=== PATIENT | male | born 1955 | race Caucasian/White ===

== ENCOUNTER 2018-06-25 15:11 | Emergency (ER) | payer OTHER, SELFPAY ==
[2018-06-25 15:14] VITALS: BP 148/92; PULSE 60; RESP 14; TEMP 37; O2SAT 98
--- NOTE | 2018-06-25 15:33 | DI.REPORT_ITS ---
SYMPTOM/DIAGNOSIS: FALL, STRUCK ANTERIOR RIGHT INFERIOR CHEST WALL. PA AND LATERAL CHEST, RIGHT RIBS: 06/25 PA and lateral views of the chest and four additional views of the right ribs were obtained. The heart is not enlarged. The lungs are clear. No pleural effusion or pneumothorax identified. No rib fractures seen.
[2018-06-25] MEDS: Acetaminophen 500 MG TAB 1000 MG PO (15:48)
--- NOTE | 2018-06-25 16:04 | ED.GENADUL ---
Disposition Clinical Impression: Chest wall contusion Disposition: HOME Condition: Fair Instructions: Contusion in Adults (ED) Additional Instructions: Encourage hydration. Encourage deep breathing to help prevent pneumonia. Tylenol and/or ibuprofen as needed for discomfort. Please follow-up with primary care in 1 week if pain persists. If you develop shortness of breath, difficulty breathing, increased pain, fever/chills or other new/worsening symptoms please seek care urgently once again. Referrals: Gayle Thurston [Primary Care Provider] - Medical Decision Making - Radiology Data Radiology results: report reviewed, image reviewed X-ray reviewed by radiologist. They advised that the lungs are unremarkable with no consolidation. Pleural space is unremarkable no pneumothorax. Heart is unremarkable no cardiomegaly. Mediastinum is unremarkable, bones are unremarkable. Minimal elevation of the left diaphragm is noted. 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 Diffuse osteopenia. No rib fracture or focal rib lesion seen. - Medical Decision Making Patient presents today with chief complaint of anterior right chest wall pain after falling and striking this area of his chest on a nightstand 2 days ago. Lungs are clear on exam. Patient has chest wall tenderness and localized discoloration where he struck the nightstand. No pain elicited with AP or lateral chest wall compression. No palpable bony defect. Vital signs are within normal limits. Patient is declining any analgesics at this time. Will obtain right-sided rib series. Patient requesting Tylenol and nursing staff. The patient and agree with Tylenol. X-ray reviewed by radiologist. No acute abnormalities noted. I discussed these findings with the patient. Advised chest wall contusion. Encourage deep breathing to help prevent against pneumonia. We discussed new/worsening symptoms when to seek care urgently once again. Advised Tylenol and/or ibuprofen as needed for discomfort. Advise follow-up with primary care in 1 week if symptoms are not improving. All his questions and concerns were addressed and he is in agreement this plan. History of Present Illness - General Chief complaint: Chest/Rib Stated complaint: RT SIDE RIB PAIN Time Seen by Provider: 06/25/18 15:15 Source: patient, family, RN notes reviewed Mode of arrival: ambulatory Limitations: no limitations - History of Present Illness Initial comments: Patient is a 63-year-old male presenting today with chief complaint of anterior right chest wall discomfort. He reports that 2 days ago he tripped in the middle of the night after using the restroom and fell striking his anterior right side of his chest against his nightstand. Reports that since that time he has had progressively increasing discomfort. States that this was particularly exacerbated after gardening yesterday. He denies any shortness of breath but does endorse discomfort with deep inspiration. Patient indicates to an area of ecchymosis as the area of primary discomfort on the anterior right side of his chest wall. Patient reports that approximately 10 years ago he fell from a roof and suffered multiple rib fractures and internal bleeding. He is describing a hemothorax reports that he had to be hospitalized for several days after this incident. Patient takes aspirin daily and is concerned that he may be at high risk for recurrent internal bleeding. Reports that starting yesterday he has had a mild cough. Denies any hemoptysis. - Related Data Aspirin [Aspir-Low] 81 mg PO DAILY 06/20/13 Multivitamin [Animal Chews] 1 each PO DAILY 06/20/13 Cetirizine HCl [Zyrtec] 10 mg PO DAILY 08/26/14 EPINEPHrine [Epipen] 08/26/14 Losartan [Cozaar] 25 mg PO DAILY 08/26/14 Metoprolol [Lopressor] 12.5 mg PO BID 08/26/14 Vardenafil HCl [Levitra] 2.5 mg PO PRN 08/26/14 Allergies Allergy/AdvReac Type Severity Reaction Status Date / Time venom-wasp [Wasp Venom] Allergy Severe Unverified 11/26/17 09:33 apples Allergy Severe Uncoded 11/26/17 09:33 bananas Allergy Severe Uncoded 11/26/17 09:33 coconuts Allergy Severe Uncoded 11/26/17 09:33 grapefruit Allergy Severe Uncoded 11/26/17 09:33 strawberries Allergy Severe Uncoded 11/26/17 09:33 grapes Allergy Intermediate Uncoded 11/26/17 09:33 oranges Allergy Unknown Uncoded 11/26/17 09:33 nuts Allergy Uncoded 11/26/17 09:33 Review of Systems Constitutional: no symptoms reported. denies: chills, fever, malaise Respiratory: no symptoms reported, cough. denies: shortness of breath Cardiovascular: as per HPI Gastrointestinal: denies: abdominal pain, nausea, vomiting, diarrhea Genitourinary: denies: urgency Musculoskeletal: denies: back pain Skin: as per HPI Neurological: denies: headache (Denies striking his head. No LOC) Past Medical History - Past Medical History Medical history: hypertension - Social History Alcohol use: none Drug use: none General Exam - General Limitations: no limitations General appearance: alert, in no apparent distress - Head Head exam: Present: atraumatic - Eye Eye exam: Present: normal apperance - Respiratory Respiratory exam: Present: normal lung sounds bilaterally, chest wall tenderness (Patient is point tender over the anterior inferior right sided chest wall. He does have a 5 cm linear area of discoloration. Minimal soft tissue swelling. No palpable bony deformity. No pain elicited with AP or lateral chest wall pressure applied.). Absent: respiratory distress, stridor, accessory muscle use - Cardiovascular Cardiovascular Exam: Present: regular rate, normal rhythm, normal heart sounds - GI/Abdominal GI/Abdominal exam: Present: soft. Absent: distended, tenderness, guarding - Back Exam Back exam: Present: normal inspection - Neurological Exam Neurological exam: Present: alert, normal gait - Psychiatric Psychiatric exam: Present: normal affect, normal mood - Skin Skin exam: Present: warm, dry. Absent: normal color (As above) Course Vital Signs - 24 hr 06/25/18 15:14 Temperature 37.0 C Pulse 60 Respiratory 14 Rate Blood Pressure 148/92 Pulse Oximetry 98
--- NOTE | 2018-06-25 16:57 | DI.VRAD_ITS ---
EXAM: XR Chest, 2 Views CLINICAL HISTORY: 63 years old, male; Injury or trauma; Fall; Initial encounter; Sprain or strain; Rib area TECHNIQUE: Frontal and lateral views of the chest. COMPARISON: No relevant prior studies available. FINDINGS: Lungs: Unremarkable. No consolidation. Pleural space: Unremarkable. No pneumothorax. Heart: Unremarkable. No cardiomegaly. Mediastinum: Unremarkable. Bones/joints: Unremarkable. Upper abdomen: Minimal elevation of the left diaphragm. IMPRESSION: No acute findings. EXAM: XR Right Ribs, 2 Views CLINICAL HISTORY: 63 years old, male; Injury or trauma; Fall; Initial encounter; Sprain or strain; Rib area TECHNIQUE: Frontal and oblique views of the right ribs. COMPARISON: CR - RIGHT RIBS TO INCLUDE CXR 2016-02-03 08:52 FINDINGS: Lungs: Unremarkable as visualized. No consolidation. Pleural space: Unremarkable. No pneumothorax. 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 Diffuse osteopenia. No rib fracture or focal rib lesion. IMPRESSION: No acute findings. Dictated and Authenticated by: Tanner Altamirano MD. Ordering:JOMAR CAMPBELL MD
[2018-06-25 17:01] VITALS: BP 150/90; PULSE 54; RESP 14; TEMP 37.1; O2SAT 97
[2018-06-25 17:03] VITALS: BP 150/90; PULSE 54; RESP 14; TEMP 37.1; O2SAT 97
== END 2018-06-25 17:10 | disposition home or self-care (01) ==
PROVIDERS: Emergency Provider Emergency Medicine; PCP Nurse Practitioner
DX: S20.211A Contusion of right front wall of thorax, initial encounter (principal); W01.190A Fall on same level from slipping, tripping and stumbling with subsequent striking against furniture, initial encounter; Y92.013 Bedroom of single-family (private) house as the place of occurrence of the external cause; Z79.82 Long term (current) use of aspirin; I10 Essential (primary) hypertension
CPT/HCPCS: 99283; 71046; 71100; 99282

== ENCOUNTER 2018-09-09 08:12 | Outpatient (REF) | payer OTHER, SELFPAY ==
[2018-09-09 13:13] LABS: COMMENT (LAB VIEW ONLY) 127.21 mg/dL; Microalb ug/mg Crea 8.2 ug/mg Cr
[2018-09-09 13:25] LABS: Hemoglobin A1C 7.7 % (4.5-6.2)
[2018-09-09 13:26] LABS: ALT 46 U/L (12-78); AST 23 U/L (15-37); Albumin 3.8 g/dL (3.4-5.0); Alkaline Phosphatase 64 U/L (46-116); Anion Gap 10.3 mmol/L (3-11); BUN 16 mg/dL (7-18); Bilirubin, Total 1.4 mg/dL (0.2-1.0); CO2 27.7 mmol/L (21.0-32.0); CREATININE 0.93 mg/dL (0.70-1.30); Calcium 8.6 mg/dL (8.5-10.1); Chloride 102 mmol/L (98-107); Cholesterol 166 mg/dL (50-200); Glucose 153 mg/dL (70-100); HDL Cholesterol 48 mg/dL (40-60); LDL CHOLESTEROL 108 mg/dL (<100); Potassium 3.8 mmol/L (3.5-5.1); Sodium 140 mmol/L (136-145); Total Protein 6.5 g/dL (6.4-8.2); Triglyceride 74 mg/dL (30-150)
== END 2018-09-09 08:32 ==
LOC: NCHCN 08:12
PROVIDERS: PCP Nurse Practitioner; Visit Provider Nurse Practitioner
DX: R73.9 Hyperglycemia, unspecified (principal); I10 Essential (primary) hypertension; E11.9 Type 2 diabetes mellitus without complications
CPT/HCPCS: 80053; 80061; 83721; 82043; 82570; 83036

== ENCOUNTER 2018-10-21 01:02 | Outpatient (CLI) | payer OTHER, SELFPAY ==
--- NOTE | 2018-10-21 08:00 | DI.US_ITS ---
SYMPTOM/DIAGNOSIS: ABD BLOATING, R14.0, ? CHOLECYSTITIS ABDOMEN ULTRASOUND: The liver shows mildly increased echogenicity consistent with fatty infiltration. There are two small areas of focal fatty sparing near the gallbladder fossa. The gallbladder is unremarkable, without evidence of stones or wall thickening. No biliary dilatation or common duct stone is seen. No ascites. The pancreas and aorta were obscured by bowel gas. Small cysts are noted on both kidneys. Spleen is normal in size. IMPRESSION: Mild fatty infiltration of the liver. No evidence of cholecystitis. No gallstones are seen.
== END 2018-10-21 01:22 ==
PROVIDERS: PCP Nurse Practitioner; Visit Provider Nurse Practitioner
DX: R14.0 Abdominal distension (gaseous) (principal); K76.0 Fatty (change of) liver, not elsewhere classified
CPT/HCPCS: 76700

== ENCOUNTER 2019-03-17 08:34 | Emergency (ER) | payer OTHER, SELFPAY ==
[2019-03-17] VITALS (27 sets, daily range): BP systolic 143–188; BP diastolic 72–89; PULSE 43–58; RESP 12–26; TEMP 36.7–36.9; O2SAT 94–98
--- NOTE | 2019-03-17 08:44 | DI.RAD_ITS ---
SYMPTOM/DIAGNOSIS: CHEST PAIN FRONTAL AND LATERAL CHEST: Comparison is made with 06/25/18. Heart size and pulmonary vasculature are stable and within normal limits. There does appear to be an infiltrate in the left lower lobe posteriorly. This may represent atelectasis or pneumonia. There is obscuration of the posterior costophrenic angle on the left. The right lung is clear. The bones are intact. IMPRESSION: Left basilar atelectasis or pneumonia.
[2019-03-17 08:58] LABS: Abs Immature Grans 0.02 k/cumm (0.0-0.09); Absolute Basophil Count 0.01 k/cumm (0.0-0.2); Absolute Eosinophil Count 0.14 k/cumm (0.0-0.7); Absolute Lymphocyte Count 2.32 k/cumm (1.2-3.4); Absolute Monocyte Count 0.59 k/cumm (0.11-0.7); Absolute Neutrophil Count 6.13 k/cumm (1.2-6.7); Basophils % 0.1; Eosinophils % 1.5; HCT 47.3 % (40.0-50.0); HGB 16.4 g/dL (13.5-17.5); Immature Grans % 0.2; Lymphocytes % 25.2; Mean Corp. HGB Concentration 34.7 g/dL (32.0-36.0); Mean Corpuscular Hemoglobin 31.4 pg (27.0-33.0); Mean Corpuscular Volume 90.6 fL (80-95); Mean Platelet Volume 9.8 fL (8.0-11.0); Monocytes % 6.4; Neutrophils % 66.6; Platelet Count 199 x1000/uL (130-400); RBC 5.22 m/cumm (4.50-6.00); RBC Distribution Width 13.1 % (11.8-14.1); White Blood Cell Count 9.21 k/cumm (4.4-10.8)
--- NOTE | 2019-03-17 09:03 | DI.CT_ITS ---
SYMPTOM/DIAGNOSIS: DIZZINESS NONCONTRAST HEAD CT: There are no priors for comparison. The ventricles and sulci are consistent with the patient's age. No evidence of an acute infarct, hemorrhage, acute midline shift or mass effect is identified. The ventricles are intact. The basilar cisterns are patent. There is opacification of the left maxillary sinus with thickening of the duque of the sinus suggesting chronic sinus disease. There is mucosal thickening in several of the left ethmoid air cells and the left sphenoid sinus. The mastoid air cells are well pneumatized. The calvarium is intact. IMPRESSION: 1. No acute intracranial process. 2. Findings of chronic maxillary sinusitis. The findings were discussed with the ER on the date of the examination.
--- NOTE | 2019-03-17 09:05 | ED.GENADUL_ITS ---
Discharge Plan Disposition Patient Disposition: HOME Condition: Improving Discharge Details Chief Complaint: GenMedical Clinical Impression: Chest pain, atypical Primary Care Provider: Gayle Thurston ED Provider: Eric White Home Meds and New Rx's Prescriptions: Continued pediatric multivitamin [ANIMAL CHEWS] 1 EACH tablet,chewable 1 ea PO DAILY RF: 0 aspirin [Aspir-Low] 81 MG tablet,delayed release (DR/EC) 81 mg PO DAILY RF: 0 metoprolol tartrate 25 MG tablet 25 mg PO BID RF: 0 cetirizine [Zyrtec] 10 MG tablet 10 mg PO DAILY RF: 0 epinephrine 0.3 MG/SYR auto-injector RF: 0 chlorthalidone 25 mg Tablet 12.5 mg PO DAILY RF: 0 losartan 25 mg Tablet 25 mg PO HS RF: 0 losartan 50 mg Tablet 50 mg PO DAILY RF: 0 vardenafil [Levitra] 20 mg Tablet 20 mg PO DAILY PRNRF: 0 Discharge Instructions Instructions: Chest Pain (ED) Additional Instructions: Return immediately to the emergency department if you have any new or worsening symptoms, return of pain or discomfort, or worsening dizziness. Given your low heart rate and your medications you are on you should follow-up with your primary care provider in the next week for reassessment. Referrals: Gayle Thurston [Primary Care Provider] - 1 week (For reassessment) Discharge Data Discharge Date/Time-TO BE ENTERED AT DEPARTURE: 03/17/19 13:09 Medical Decision Making Patient presenting the emergency department for chief complaint of chest pressure and some dizziness that started between 3 and 7 AM. He does state bilateral tingling hands. Patient does state he was not sleeping well due to significant amount of stress and work conflict that is been going on recently. The symptoms did not subside so he decided to come to the emergency department. Patient states continued chest pressure and tingling hands with intermittent subjective dizziness. Physical exam is unremarkable without any specific findings, normal cardiac exam, normal neurological exam. Plan to check labs, EKG, and head CT/chest x-ray. EKG reviewed with Sari Gomez and shows sinus bradycardia, rate of 57, no STEMI, otherwise nondiagnostic. Chest x-ray shows no acute findings. Head CT shows sinusitis otherwise no acute findings. Patient does state that he has seasonal allergies and has been suffering with these. Review of labs show negative initial troponin, unremarkable CBC, mildly low potassium but otherwise nondiagnostic CMP. Patient reassessed and states improvement of symptoms. Given patient stating dizziness and chest pressure did discuss d-dimer and second troponin which patient was agreeable to stay. Pending remaining results did discuss with patient symptoms further and he does state that they have had to change his metoprolol dose previously due to some dizziness which occurs in the morning. Patient also does describe significant amount of stress so there may be an anxiety component to patient's complaint. D-dimer was not elevated outside of limits and negative second troponin. Given this I feel the patient is able to safely be discharged to follow-up with his primary care provider for further testing as needed. I do think that there is a possible component of recent stressors that is causing patient symptoms. Return precautions were discussed. After discussion of diagnosis and plan of care patient has no further needs, questions, or concerns and states clear under standing to return to the emergency department for any worsening symptoms. HPI General Mode of arrival: ambulatory . Date/Time Provider Initiated Documentation: 03/17/19 08:40 . Limitations to Documentation: no limitations . Information obtained by: patient, family and RN notes reviewed . History of Present Illness 64 year old M presents to the emergency department with the chief complaint of chest pain dizzness, described as mild, with intensity rated at 4. Quality is described as other (pressure), and is localized to the head and chest. Patient started experiencing this hour(s) (5) and it has been constant. No relieving factors improve symptom(s), Other factors that worsen symptoms (work stress) . Patient did receive the following treatments prior to arrival, none Related Data Home Medications Medication Instructions Recorded Confirmed aspirin [Aspir-Low] 81 mg PO DAILY 06/20/13 03/17/19 pediatric multivitamin [ANIMAL 1 ea PO DAILY 06/20/13 03/17/19 CHEWS] cetirizine [Zyrtec] 10 mg PO DAILY 08/26/14 03/17/19 epinephrine 08/26/14 09/17/14 metoprolol tartrate 25 mg PO BID 08/26/14 03/17/19 chlorthalidone 12.5 mg PO DAILY 03/17/19 03/17/19 losartan 25 mg PO HS 03/17/19 03/17/19 losartan 50 mg PO DAILY 03/17/19 03/17/19 vardenafil [Levitra] 20 mg PO DAILY PRN 03/17/19 03/17/19 Allergies Allergy/AdvReac Type Severity Reaction Status Date / Time venom-wasp [Wasp Venom] Allergy Severe Unverified 03/17/19 08:54 apples Allergy Severe Uncoded 03/17/19 08:54 bananas Allergy Severe Uncoded 03/17/19 08:54 coconuts Allergy Severe Uncoded 03/17/19 08:54 grapefruit Allergy Severe Uncoded 03/17/19 08:54 strawberries Allergy Severe Uncoded 03/17/19 08:54 grapes Allergy Intermediate Uncoded 03/17/19 08:54 oranges Allergy Unknown Uncoded 03/17/19 08:54 nuts Allergy Uncoded 03/17/19 08:54 General Stated Complaint: GenMedical YANY: 2 Review of Systems Constitutional Denies chills, Denies fever(s) and Denies malaise Cardiovascular Reports as per HPI, Reports chest pain, Denies chest pain with activity, Denies syncope, Denies irregular heart rhythm, Denies palpitations and Denies dyspnea Respiratory Denies cough, Denies hemoptysis and Denies dyspnea Gastrointestinal Denies abdominal pain, Denies nausea and Denies vomiting Neurologic Denies syncope Psychiatric Denies anxiety Endocrine Denies cold intolerance, Denies heat intolerance and Denies palpitations [facility] Social History Smoking/Tobacco Use Status: Never Drug use: Never Do you feel safe at home: Yes Do you feel safe in your relationship?: Yes Exam Const General: cooperative, healthy appearing, comfortable, no acute distress, not diaphoretic and not ill appearing Nutritional Appearance: average body habitus Orientation: alert, awake and oriented x3 Limitations: mental status not altered Neck Neck: normal visual inspection, full ROM, trachea midline, supple and no anterior neck swelling Thyroid: thyroid normal Carotids: normal carotid upstroke and no bruits Chest Chest: normal inspection of the chest Resp Effort & Inspection: normal respiratory effort and able to speak in complete sentences Auscultation: clear to auscultation bilaterally Cardio Jugular venous pressure: no JVD Palpation: normal PMI Rate: regular rate Rhythm: regular rhythm Heart Sounds: S1 normal, S2 normal, no click, no gallops, no murmurs and no rubs Bruits: no abdominal aortic bruits and no carotid bruits Pulses: radial pulses present bilaterally 2+ GI Inspection: normal to inspection Palpation: soft, no aortic enlargement, no pulsatile masses and nontender Auscultation: normal bowel sounds Skin General skin exam: no rashes or lesions noted Neuro General: alert, awake, oriented x3, tone normal and moves all extremities Course Vital Signs Temperature 36.9 C 03/17/19 08:42 Pulse 58 L 03/17/19 08:42 Respiratory Rate 16 03/17/19 08:42 Blood Pressure 188/89 H 03/17/19 08:42 Pulse Oximetry 98 03/17/19 08:42 Temperature 36.9 C 03/17/19 08:42 Temperature Source Skin 03/17/19 08:42 Pulse 58 L 03/17/19 08:42 Respiratory Rate 16 03/17/19 08:42 Respiratory Effort Non-Labored 03/17/19 08:47 Blood Pressure 188/89 H 03/17/19 08:42 Blood Pressure Position Sitting 03/17/19 08:42 Pulse Oximetry 98 03/17/19 08:42 Oxygen Delivery Method Room Air 03/17/19 08:42 Oxygen Flow Rate 0 03/17/19 08:42 Pain Level 2 03/17/19 08:42 Lab/Test Results Lab/Test Results: Laboratory Tests Range/Units 03/17/19 08:45 WBC (4.4-10.8) k/cumm 9.21 RBC (4.50-6.00) m/cumm 5.22 Hgb (13.5-17.5) g/dL 16.4 Hct (40.0-50.0) % 47.3 MCV (80-95) fL 90.6 MCH (27.0-33.0) pg 31.4 MCHC (32.0-36.0) g/dL 34.7 RDW (11.8-14.1) % 13.1 Plt Count (130-400) x1000/uL 199 MPV (8.0-11.0) fL 9.8 Immature Gran % 0.2 Neutrophils % 66.6 Lymphocytes % 25.2 Monocytes % 6.4 Eosinophils % 1.5 Basophils % 0.1 Absolute Neutrophils (1.2-6.7) k/cumm 6.13 Absolute Lymphocytes (1.2-3.4) k/cumm 2.32 Absolute Monocytes (0.11-0.7) k/cumm 0.59 Absolute Eosinophils (0.0-0.7) k/cumm 0.14 Absolute Basophils (0.0-0.2) k/cumm 0.01
[2019-03-17 09:13] LABS: PTT Activated 23.6 sec (21.0-31.4)
[2019-03-17 09:22] LABS: ALT 40 U/L (12-78); AST 18 U/L (15-37); Albumin 3.9 g/dL (3.4-5.0); Alkaline Phosphatase 63 U/L (46-116); Anion Gap 10.5 mmol/L (3-11); BUN 16 mg/dL (7-18); Bilirubin, Total 1.8 mg/dL (0.2-1.0); CO2 28.5 mmol/L (21.0-32.0); CREATININE 0.95 mg/dL (0.70-1.30); Calcium 8.8 mg/dL (8.5-10.1); Chloride 102 mmol/L (98-107); Glucose 199 mg/dL (70-100); Magnesium 1.8 mg/dL (1.8-2.4); Potassium 3.4 mmol/L (3.5-5.1); Sodium 141 mmol/L (136-145); Total Protein 7.2 g/dL (6.4-8.2); Troponin I 0.02 ng/mL (0.00-0.06)
[2019-03-17 10:28] LABS: Bilirubin Negative (Negative); Blood Trace-intact (Negative); Clarity Clear; Glucose 100 mg/dL (Negative); Ketones Negative (Negative); Leukocyte Esterase Negative (Negative); Nitrite Negative (Negative); Urobilinogen 0.2 EU/dL (Up TO 0.2)
[2019-03-17 10:43] LABS: Bacteria Negative HPF (Negative); C & S Indicated? No; Casts Negative LPF (Negative); Crystals Negative HPF (Negative); Epithelial Cells Negative HPF (Negative); Mucus Negative (Negative); RBC 0-2 (0-2); WBC Negative HPF (0-5)
[2019-03-17 12:40] LABS: D-Dimer 323 ng/mlFEU (<500)
[2019-03-17 12:45] LABS: Troponin I < 0.02 ng/mL (0.00-0.06)
--- NOTE | 2019-03-18 09:10 | PDOC.ERCMPRO ---
Care Management Progress Note 03/18-Randal XAVIER requested assistance with a PCP (Bertrand) f/u in two weeks for Atypical chest pain and bradycardia. Referral faxed to [facility].
== END 2019-03-17 13:09 | disposition home or self-care (01) ==
PROVIDERS: Emergency Provider Nurse Practitioner Family; PCP Nurse Practitioner
DX: R07.89 Other chest pain (principal); R42 Dizziness and giddiness; R20.2 Paresthesia of skin; R00.1 Bradycardia, unspecified
CPT/HCPCS: 36415; 80053; 93005; 99285; 70450; 71046; 81003; 81015; 83735; 84484; 85025; 85379; 85610; 85730; 93010

== ENCOUNTER 2020-09-01 13:02 | Outpatient (REF) | payer OTHER, SELFPAY ==
[2020-09-01 18:24] LABS: Hemoglobin A1C 7.2 % (<5.7)
[2020-09-01 18:27] LABS: ALT 34 U/L (16-63); AST 14 U/L (15-37); Alkaline Phosphatase 81 U/L (46-116); Anion Gap 9.9 mmol/L (3-11); BUN 14 mg/dL (7-18); Bilirubin, Total 0.9 mg/dL (0.2-1.0); CO2 26.1 mmol/L (21.0-32.0); CREATININE 1.06 mg/dL (0.70-1.30); Calcium 8.8 mg/dL (8.5-10.1); Chloride 102 mmol/L (98-107); Cholesterol 203 mg/dL (<200); Glucose 265 mg/dL (74-106); HDL Cholesterol 39 mg/dL (40-60); Potassium 3.8 mmol/L (3.5-5.1); Sodium 138 mmol/L (136-145); Total Protein 6.9 g/dL (6.4-8.2); Triglyceride 401 mg/dL (<150)
[2020-09-01 18:39] LABS: LDL CHOLESTEROL 128 mg/dL (<100)
[2020-09-02 21:49] LABS: PSA, Screening 1.8 ng/mL (0.0-4.5)
== END 2020-09-01 13:22 ==
LOC: NCHCN 13:02
PROVIDERS: PCP Nurse Practitioner; Visit Provider Nurse Practitioner
DX: Z00.00 Encounter for general adult medical examination without abnormal findings (principal); E11.9 Type 2 diabetes mellitus without complications; I10 Essential (primary) hypertension; Z12.5 Encounter for screening for malignant neoplasm of prostate; Z13.89 Encounter for screening for other disorder
CPT/HCPCS: 80053; 80061; 83721; 84153; 83036

== ENCOUNTER 2021-10-30 18:43 | Outpatient (REF) | payer OTHER, SELFPAY ==
[2021-10-30 20:27] LABS: Hemoglobin A1C 6.8 % (<5.7)
[2021-10-30 20:33] LABS: ALT 39 U/L (16-63); AST 17 U/L (15-37); Alkaline Phosphatase 77 U/L (46-116); Anion Gap 9.1 mmol/L (3-11); BUN 17 mg/dL (7-18); Bilirubin, Total 0.7 mg/dL (0.2-1.0); CO2 28.9 mmol/L (21.0-32.0); CREATININE 0.9 mg/dL (0.70-1.30); Calculated LDL 47 mg/dL (<100); Chloride 104 mmol/L (98-107); Cholesterol 110 mg/dL (<200); Glucose 167 mg/dL (74-106); HDL Cholesterol 40 mg/dL (40-60); Potassium 3.8 mmol/L (3.5-5.1); Sodium 142 mmol/L (136-145); Total Protein 6.2 g/dL (6.4-8.2); Triglyceride 118 mg/dL (<150)
== END 2021-10-30 18:44 | disposition home or self-care (01) ==
LOC: NCHCN 18:43
PROVIDERS: PCP Nurse Practitioner; Visit Provider Nurse Practitioner
DX: E11.9 Type 2 diabetes mellitus without complications (principal); I10 Essential (primary) hypertension
CPT/HCPCS: 80053; 80061; 83036

== ENCOUNTER 2022-03-19 13:37 | Emergency (ER) | payer OTHER, SELFPAY ==
[2022-03-19 14:12] VITALS: BP 156/79; PULSE 45; RESP 16; TEMP 36.6; O2SAT 96
--- NOTE | 2022-03-19 15:04 | W.ED.GENAD ---
Discharge Plan Disposition Patient Disposition: HOME Condition: Stable Discharge Details Clinical Impression: Puncture wound of finger of right hand Primary Care Provider: Gayle Thurston ED Provider: Steve Hutchinson Home Meds and New Rx's Prescriptions: Continued pediatric multivitamin [ANIMAL CHEWS] 1 EACH tablet,chewable 1 ea PO DAILY aspirin [Aspir-Low] 81 MG tablet,delayed release (DR/EC) 81 mg PO DAILY metoprolol tartrate 25 MG tablet 25 mg PO BID cetirizine [Zyrtec] 10 MG tablet 10 mg PO DAILY epinephrine 0.3 MG/SYR auto-injector chlorthalidone 25 mg Tablet 12.5 mg PO DAILY losartan 25 mg Tablet 25 mg PO HS losartan 50 mg Tablet 50 mg PO DAILY vardenafil [Levitra] 20 mg Tablet 20 mg PO DAILY PRN Discharge Instructions Instructions: Puncture Wound (ED) Additional Instructions: Keflex as directed. Change antibiotic dressing daily. rest/elevate,warm compresses or soaks every 2 hours for 20 minutes. Wear splint as needed, advance activity as tolerated. Watch for new/worsening symptoms and return to the ER for any concerns. I would like you contact the Orthopaedic office tomorrow to discuss your ER visit and need for outpatient evaluation Referrals: Swapnil Myers MD [ [facility] STAFF PHYSICIAN] - Discharge Data Discharge Date/Time-TO BE ENTERED AT DEPARTURE: 03/19/22 17:44 Medical Decision Making <WOODROW Smith - Last Filed: 03/19/22 21:04> 67-year-old gentleman, [id number], tetanus status looked up and he is up-to-date, updated in 2019, presents for a puncture injury to his right middle finger. Prior to arrival he had a mechanical slip and fall, nail went through the flexor aspect of his distal right middle finger and exited through the extensor aspect. Reports mild discomfort, stiffness but neuro, attending, vascular intact. 5 of 5 strength. No obvious foreign body or bleeding. The wound was thoroughly soaked in Betadine and sterile water then irrigated. X-ray read by radiology as unremarkable third digit, old fourth finger injury. Clinically patient has no injury to the fourth digit. The wound was appropriately cleaned and dressed with antibiotic dressing. Splint applied. Orthopedic referral provided. Standard discharge and return precautions were provided. Patient understands, is agreeable to this plan, and has no additional questions or concerns upon discharge. This documentation was generated using [employer] system, please disregard any oddities of phrase or misspellings. Medical Records Medical records reviewed: Yes I reviewed the patient's medical records. Imaging Data Radiologic Study: Attestation: I personally reviewed and interpreted this imaging study as follows: Imaging: X-Ray Radiologist's impression: Exam(s) XR HAND RT COMPLETE EXAM: XR HAND RT COMPLETE CLINICAL HISTORY: nail throught r middle finger, near DIP. TECHNIQUE: 2D digital imaging was performed. Three views. COMPARISON: No exams were available for comparison FINDINGS: BONES: No acute fracture is present. There is deformity of the tuft of the 4th finger consistent with old injury. No bony destructive lesion is seen. JOINTS: No dislocation present. Mild degenerative changes of the inter phalangeal joints. SOFT TISSUE: Normal. No foreign body. IMPRESSION: No abnormality of the middle finger. Deformity of the tuft of the ring finger, presumably old. <WOODROW Gonzalez - Last Filed: 03/30/22 11:05> 67-year-old gentleman, [id number], tetanus status looked up and he is up-to-date, updated in 2020, presents for a puncture injury to his right middle finger. Prior to arrival he had a mechanical slip and fall, nail went through the flexor aspect of his distal right middle finger and exited through the extensor aspect. Reports mild discomfort, stiffness but neuro, attending, vascular intact. 5 of 5 strength. No obvious foreign body or bleeding. The wound was thoroughly soaked in Betadine and sterile water then irrigated. X-ray read by radiology as unremarkable third digit, old fourth finger injury. Clinically patient has no injury to the fourth digit. The wound was appropriately cleaned and dressed with antibiotic dressing. Splint applied. Orthopedic referral provided. Standard discharge and return precautions were provided. Patient understands, is agreeable to this plan, and has no additional questions or concerns upon discharge. This documentation was generated using [employer] system, please disregard any oddities of phrase or misspellings. Mason I did not see this patient or participate in his care, my name was entered in error. HPI <WOODROW Smith - Last Filed: 03/19/22 21:04> General Mode of arrival: ambulatory. Date/Time Provider Initiated Documentation: 03/19/22 14:16. Limitations to Documentation: no limitations. Information obtained by: patient and family. History of Present Illness 67 year old M presents to the emergency department with the chief complaint of R middle finger injury, described as moderate, with intensity rated at 5. Quality is described as aching, and is localized to the right and upper extremity. Patient reports no radiation. Patient started experiencing this hour(s) (3) and it has been constant. No relieving factors improve symptom(s), Movement worsens symptoms . Patient notes no other symptoms.. Patient did receive the following treatments prior to arrival, none Related Data Home Medications Medication Instructions Recorded Confirmed aspirin 81 mg tablet,delayed 81 mg PO DAILY 06/20/13 03/17/19 release (Aspir-Low) pediatric multivitamin (ANIMAL 1 ea PO DAILY 06/20/13 03/17/19 CHEWS tablet) cetirizine 10 mg tablet (Zyrtec) 10 mg PO DAILY 08/26/14 03/17/19 epinephrine 0.3 mg/0.3 mL 08/26/14 09/17/14 injection, auto-injector metoprolol tartrate 25 mg tablet 25 mg PO BID 08/26/14 03/17/19 chlorthalidone 25 mg tablet 12.5 mg PO DAILY 03/17/19 03/17/19 losartan 25 mg tablet 25 mg PO HS 03/17/19 03/17/19 losartan 50 mg tablet 50 mg PO DAILY 03/17/19 03/17/19 vardenafil 20 mg tablet (Levitra) 20 mg PO DAILY PRN 03/17/19 03/17/19 Allergies Allergy/AdvReac Type Severity Reaction Status Date / Time venom-wasp [Wasp Venom] Allergy Severe Unverified 03/19/22 14:14 apples Allergy Severe Uncoded 03/19/22 14:14 bananas Allergy Severe Uncoded 03/19/22 14:14 coconuts Allergy Severe Uncoded 03/19/22 14:14 grapefruit Allergy Severe Uncoded 03/19/22 14:14 strawberries Allergy Severe Uncoded 03/19/22 14:14 grapes Allergy Intermediate Uncoded 03/19/22 14:14 oranges Allergy Unknown Uncoded 03/19/22 14:14 nuts Allergy Uncoded 03/19/22 14:14 <Chikis Piburn, PA - Last Filed: 03/30/22 11:05> General Stated Complaint: Laceration YANY: 4 Review of Systems <WOODROW Smith - Last Filed: 03/19/22 21:04> Constitutional Constitutional: Denies fever(s) and Denies weakness Musculoskeletal Musculoskeletal: Denies deformity, Reports arthralgias, Denies numbness, Reports stiffness and Denies tingling Integumentary/Breasts Skin/Breast: Denies rash Neurologic Neurologic: Denies numbness, Denies tingling and Denies weakness PFSH <WOODROW Smith - Last Filed: 03/19/22 21:04> All Active Problems (Updated 03/19/22 @ 17:28 by WOODROW Smith) Puncture wound of finger of right hand (Acute) Social History Smoking/Tobacco Use Status: Never Smoking risk assessment performed?: Yes Alcohol Intake: current Alcohol Intake frequency: a few times a month Alcohol type: beer Drug use: Never Do you feel safe at home: Yes Do you feel safe in your relationship?: Yes Exam <WOODROW Smith - Last Filed: 03/19/22 21:04> Const General: cooperative, healthy appearing, comfortable and no acute distress Orientation: alert and awake [facility] Head: normal to inspection, normocephalic and atraumatic Eyes Conjunctivae: conjunctivae normal Neck Neck: normal visual inspection, trachea midline and supple Resp Effort & Inspection: normal respiratory effort and able to speak in complete sentences Skin General skin exam: no rashes or lesions noted Neuro General: patient alert, patient awake, moves all extremities and no focal motor deficits Cognition: normal cognition Speech: speech normal Gait: normal gait Motor: muscle tone normal throughout Sensory Exam: no sensory deficits noted Extrem General: full ROM and capillary refill normal Hand/finger images: 1. Puncture wound. No active bleeding. No obvious foreign body. Neuro, vascular, tendon intact. Normal capillary refill and radial pulse. 5 of 5 strength. 2. Puncture wound. No active bleeding. No obvious foreign body. Neuro, vascular, tendon intact. Normal capillary refill and radial pulse. 5 of 5 strength. Psych Appearance: grossly normal Mental Status: mental status grossly normal <WOODROW Gonzalez - Last Filed: 03/30/22 11:05> Vital Signs Vital signs: Vital Signs Temperature 36.6 C 03/19/22 14:12 Pulse 45 L 03/19/22 14:12 Respiratory Rate 16 03/19/22 14:12 Blood Pressure 156/79 H 03/19/22 14:12 Pulse Oximetry 96 03/19/22 14:12 Temperature 36.6 C 03/19/22 14:12 Temperature Source Oral 03/19/22 14:12 Pulse 45 L 03/19/22 14:12 Respiratory Rate 16 03/19/22 14:12 Blood Pressure 156/79 H 03/19/22 14:12 Blood Pressure Position Sitting 03/19/22 14:12 Pulse Oximetry 96 03/19/22 14:12 Oxygen Delivery Method Room Air 03/19/22 14:12 Oxygen Flow Rate 0 03/19/22 14:12 Pain Level 4 03/19/22 14:12
[2022-03-19 15:37] VITALS: BP 174/96; PULSE 47; RESP 16; TEMP 36.3; O2SAT 96
--- NOTE | 2022-03-19 16:14 | NUR.NOTE ---
Nursing Note: Pt seen by provider, finger cleansed & soaking in saline/betadine, xray ordered, no new complaints.
--- NOTE | 2022-03-19 16:40 | DI.RAD_ITS ---
Exam(s) XR HAND RT COMPLETE EXAM: XR HAND RT COMPLETE CLINICAL HISTORY: nail throught r middle finger, near DIP. TECHNIQUE: 2D digital imaging was performed. Three views. COMPARISON: No exams were available for comparison FINDINGS: BONES: No acute fracture is present. There is deformity of the tuft of the 4th finger consistent wit h old injury. No bony destructive lesion is seen. JOINTS: No dislocation present. Mild degenerative changes of the inter phalangeal joints. SOFT TISSUE: Normal. No foreign body. IMPRESSION: No abnormality of the middle finger. Deformity of the tuft of the ring finger, presumably old. DATA REPOSITORY: RADIATION DOSE DELIVERED:
--- NOTE | 2022-03-19 17:45 | NUR.NOTE ---
Nursing Note:PT RIGHT MIDDLE FINGER DRESSED W/ANTIBIOTIC OINTMENT, TELFA, COBAN & SPLINT. PT TOLERATED W/O PROBLEMS.
== END 2022-03-19 17:44 | disposition home or self-care (01) ==
PROVIDERS: Emergency Provider Physician Assistant; PCP Nurse Practitioner
DX: S61.233A Puncture wound without foreign body of left middle finger without damage to nail, initial encounter (principal); W45.0XXA Nail entering through skin, initial encounter
CPT/HCPCS: 29130; 99283; 73130

== ENCOUNTER 2022-05-18 11:40 | Emergency (ER) | payer OTHER, SELFPAY ==
[2022-05-18 11:45] VITALS: BP 152/78; PULSE 55; RESP 18; TEMP 36.2; O2SAT 98
--- NOTE | 2022-05-18 12:45 | DI.US_ITS ---
Exam(s) US LOWER EXTREMITY VENOUS LT EXAM: US LOWER EXTREMITY VENOUS LT CLINICAL HISTORY: pain/swelling, recent trip to [place]. TECHNIQUE: Lower extremity venous ultrasound performed using grayscale, color-flow, and spectral Do ppler analysis. COMPARISON: No exams were available for comparison FINDINGS: The common femoral, femoral and popliteal veins demonstrate normal compressibility, augmentation, and color Doppler. The posterior tibial veins are patent. No saphenous vein thrombosis or other superfi cial venous thrombosis is seen. A Flowers's cyst is noted measuring 5 cm in length. IMPRESSION: Flowers's cyst. No evidence of DVT. DATA REPOSITORY:
--- NOTE | 2022-05-18 12:48 | ED.GENADUL_ITS ---
Discharge Plan Disposition Patient Disposition: HOME Condition: Stable Discharge Details Clinical Impression: Left hamstring muscle strain, Flowers's cyst of knee Primary Care Provider: Gayle Thurston ED Provider: Steve Hutchinson Home Meds and New Rx's Prescriptions: Continued ANIMAL CHEWS 1 EACH tablet,chewable 1 ea PO DAILY aspirin [Aspir-Low] 81 MG tablet,delayed release (DR/EC) 81 mg PO DAILY metoprolol tartrate 25 MG tablet 25 mg PO BID cetirizine [Zyrtec] 10 MG tablet 10 mg PO DAILY epinephrine 0.3 MG/SYR auto-injector PRN chlorthalidone 25 mg Tablet 12.5 mg PO DAILY losartan 25 mg Tablet 25 mg PO HS losartan 50 mg Tablet 50 mg PO DAILY vardenafil [Levitra] 20 mg Tablet 20 mg PO DAILY PRN Discharge Instructions Instructions: Hamstring Injury (ED), Flowers Cyst (ED) Additional Instructions: Ultrasound reveals no DVT. Incidentally there is a Flowers's cyst. He likely partially tore your hamstring. [id number] Tylenol as directed. Cool and/or warm compresses every 2 hours for 20 minutes. Gentle stretching as tolerated. Please watch for new or worsening symptoms and return to the ER for any concerns. Otherwise I recommend following up with your primary care next week for reevaluation. Discharge Data Discharge Date/Time-TO BE ENTERED AT DEPARTURE: 05/18/22 15:40 Medical Decision Making 67-year-old gentleman, presents for left leg bruising, concern for DVT. He states that he was traveling from [place] at the end of last month, running in an airport when he felt an injury to his left leg. He began to heal but he felt as though he once again injured it a few days ago and now is noticing bruising. He states that his father had a DVT and he is presenting to be sure this is not a DVT. Clinically it appears as though he likely has a soft tissue injury. No obvious complete rupture. Neuro, vascular, tendon intact. Given his recent travel to [place], concern for DVT, plan is to obtain ultrasound of the left leg. Ultrasound reveals no DVT, there is a Flowers's cyst. This discussed ultrasound with patient and family. Standard discharge and return precautions were provided. Patient understands, is agreeable to this plan, and has no additional questions or concerns upon discharge. This documentation was generated using [employer] system, please disregard any oddities of phrase or misspellings. Medical Records Medical records reviewed: Yes I reviewed the patient's medical records. Imaging Data Radiologic Study: Attestation: I personally reviewed and interpreted this imaging study as follows: Imaging: Ultrasound Radiologist's impression: Exam(s) US LOWER EXTREMITY VENOUS LT EXAM:? US LOWER EXTREMITY VENOUS LT CLINICAL HISTORY: ? pain/swelling, recent trip to [place].? TECHNIQUE: ? Lower extremity venous ultrasound performed using grayscale, color- flow, and spectral Doppler analysis. COMPARISON:? No exams were available for comparison FINDINGS: The common femoral, femoral and popliteal veins demonstrate normal compressibility, augmentation, and color Doppler. The posterior tibial veins are patent.? No saphenous vein thrombosis or other superficial venous thrombosis is seen.? A Flowers's cyst is noted measuring 5 cm in length. IMPRESSION: Flowers's cyst.? No evidence of DVT.? HPI General Mode of arrival: ambulatory . Date/Time Provider Initiated Documentation: 05/18/22 11:50 . Limitations to Documentation: no limitations . Information obtained by: patient and family . History of Present Illness 67 year old M presents to the emergency department with the chief complaint of L leg pain, described as mild, with intensity rated at 3. Quality is described as aching, and is localized to the left and lower extremity. Patient reports no radiation. Patient started experiencing this day(s) (10) and it has been other (worsening). No relieving factors improve symptom(s), Movement worsens symptoms . Patient notes denies chest pain and shortness of breath. Patient did receive the following treatments prior to arrival, none Related Data Home Medications Medication Instructions Recorded Confirmed aspirin 81 mg tablet,delayed 81 mg PO DAILY 06/20/13 05/18/22 release (Aspir-Low) pediatric multivitamin (ANIMAL 1 ea PO DAILY 06/20/13 05/18/22 CHEWS tablet) cetirizine 10 mg tablet (Zyrtec) 10 mg PO DAILY 08/26/14 05/18/22 epinephrine 0.3 mg/0.3 mL PRN 08/26/14 09/17/14 injection, auto-injector metoprolol tartrate 25 mg tablet 25 mg PO BID 08/26/14 05/18/22 chlorthalidone 25 mg tablet 12.5 mg PO DAILY 03/17/19 05/18/22 losartan 25 mg tablet 25 mg PO HS 03/17/19 05/18/22 losartan 50 mg tablet 50 mg PO DAILY 03/17/19 05/18/22 vardenafil 20 mg tablet (Levitra) 20 mg PO DAILY PRN 03/17/19 05/18/22 Allergies Allergy/AdvReac Type Severity Reaction Status Date / Time venom-wasp [Wasp Venom] Allergy Severe Unverified 03/19/22 14:14 apples Allergy Severe Uncoded 03/19/22 14:14 bananas Allergy Severe Uncoded 03/19/22 14:14 coconuts Allergy Severe Uncoded 03/19/22 14:14 grapefruit Allergy Severe Uncoded 03/19/22 14:14 strawberries Allergy Severe Uncoded 03/19/22 14:14 grapes Allergy Intermediate Uncoded 03/19/22 14:14 oranges Allergy Unknown Uncoded 03/19/22 14:14 nuts Allergy Uncoded 03/19/22 14:14 General Stated Complaint: Orthopedic YANY: 4 Review of Systems Constitutional Constitutional: Denies fever(s) and Denies weakness Cardiovascular Cardiovascular: Denies chest pain and Denies dyspnea Respiratory Respiratory: Denies dyspnea Musculoskeletal Musculoskeletal: Denies deformity, Denies arthralgias, Denies numbness, Reports stiffness and Denies tingling Integumentary/Breasts Skin/Breast: Denies rash Neurologic Neurologic: Denies numbness, Denies tingling and Denies weakness Hematologic/Lymphatic Hematologic/Lymphatic: Denies easy bleeding and Denies easy bruising PFSH All Active Problems Left hamstring muscle strain (Acute) Flowers's cyst of knee (Acute) Social History Smoking/Tobacco Use Status: Never Smoking risk assessment performed?: Yes Alcohol Intake: current Alcohol Intake frequency: a few times a month Alcohol type: beer Drug use: Never Do you feel safe at home: Yes Do you feel safe in your relationship?: Yes Exam Const General: cooperative, healthy appearing, comfortable and no acute distress Orientation: alert and awake H[facility] Head: normal to inspection, normocephalic and atraumatic Face and sinus: normal facial exam Mouth: moist mucous membranes Eyes General: appearance normal, both eyes and all related structures Conjunctivae: conjunctivae normal Neck Neck: normal visual inspection, trachea midline and supple Resp Effort & Inspection: normal respiratory effort and able to speak in complete sentences Auscultation: clear to auscultation bilaterally Cardio Rate: regular rate Rhythm: regular rhythm Back/Spine/Pelvis Back: No back tenderness Skin General skin exam: no rashes or lesions noted Neuro General: patient alert, patient awake, moves all extremities and no focal motor deficits Cognition: normal cognition Speech: speech normal Gait: normal gait Motor: muscle tone normal throughout Sensory Exam: no sensory deficits noted Extrem General: full ROM, capillary refill normal, no pedal edema and no calf tenderness Upper/lower leg/hip images: 1. Ecchymosis. Skin is intact. Normal pedal pulse and capillary refill. Calf is without tenderness. There is mild discomfort along the posterior aspect of the knee. No palpable cord. Negative Homans' sign. Psych Appearance: grossly normal Mental Status: mental status grossly normal Course Vital Signs Vital signs: Vital Signs Temperature 36.2 C L 05/18/22 11:45 Pulse 55 L 05/18/22 11:45 Respiratory Rate 18 05/18/22 11:45 Blood Pressure 152/78 H 05/18/22 11:45 Pulse Oximetry 98 05/18/22 11:45 Temperature 36.2 C L 05/18/22 11:45 Pulse 55 L 05/18/22 11:45 Respiratory Rate 18 05/18/22 11:45 Respiratory Effort Non-Labored 05/18/22 12:19 Blood Pressure 152/78 H 05/18/22 11:45 Pulse Oximetry 98 05/18/22 11:45
== END 2022-05-18 15:40 | disposition home or self-care (01) ==
PROVIDERS: Emergency Provider Physician Assistant; PCP Nurse Practitioner
DX: S86.812A Strain of other muscle(s) and tendon(s) at lower leg level, left leg, initial encounter (principal); X50.1XXA Overexertion from prolonged static or awkward postures, initial encounter; M71.22 Synovial cyst of popliteal space [Baker], left knee
CPT/HCPCS: 99284; 93971; 99283

== ENCOUNTER 2022-10-25 16:19 | Outpatient (REF) | payer OTHER, SELFPAY ==
[2022-10-25 18:18] LABS: Abs Immature Grans 0.03 10^3/uL (0.0-0.06); Absolute Basophil Count 0.03 10^3/uL (0.0-0.2); Absolute Eosinophil Count 0.14 10^3/uL (0.0-0.7); Absolute Lymphocyte Count 2.09 10^3/uL (1.2-3.4); Absolute Monocyte Count 0.64 10^3/uL (0.1-0.8); Absolute Neutrophil Count 6.02 10^3/uL (1.2-6.7); Basophils % 0.3; Eosinophils % 1.6; HCT 47.9 % (40.0-50.0); HGB 16.8 g/dL (13.5-17.5); Immature Grans % 0.3; Lymphocytes % 23.4; MCH 31.8 pg (27.0-33.0); MCHC 35.1 % (32.0-36.0); MCV 91 fL (80-95); MPV 9.6 fL (8.0-11.0); Monocytes % 7.2; Neutrophils % 67.2; Platelet Count 237 10^3/uL (130-400); RBC 5.29 10^6/uL (4.36-5.78); RDW 12.4 % (11.8-14.1); WBC 8.95 10^3/uL (4.4-10.8)
[2022-10-25 18:34] LABS: ALT 25 U/L (16-63); AST 16 U/L (15-37); Albumin 4.3 g/dL (3.4-5.0); Alkaline Phosphatase 71 U/L (46-116); Anion Gap 10.3 mmol/L (3-11); BUN 18 mg/dL (7-18); Bilirubin, Total 0.8 mg/dL (0.2-1.0); CO2 27.7 mmol/L (21.0-32.0); CREATININE 0.9 mg/dL (0.70-1.30); Calcium 9.2 mg/dL (8.5-10.1); Calculated LDL 34 mg/dL (<100); Chloride 103 mmol/L (98-107); Cholesterol 99 mg/dL (<200); Estimated GFR 94.78 (mL/min/1.73m2); Glucose 132 mg/dL (74-106); HDL Cholesterol 45 mg/dL (40-60); Potassium 3.7 mmol/L (3.5-5.1); Sodium 141 mmol/L (136-145); Total Protein 6.9 g/dL (6.4-8.2); Triglyceride 103 mg/dL (<150)
[2022-10-26 21:35] LABS: PSA, Screening 1.6 ng/mL (<=4.5)
[2022-10-27 13:36] LABS: HIV-1/2 Ag & Ab Screen Negative (Negative)
[2022-10-29 10:18] LABS: Hepatitis C Ab w Rflx HCV PCR Negative (Negative)
== END 2022-10-25 16:20 | disposition home or self-care (01) ==
LOC: NCHCN 16:19
PROVIDERS: PCP Nurse Practitioner; Visit Provider Nurse Practitioner Family
DX: E11.9 Type 2 diabetes mellitus without complications (principal); I10 Essential (primary) hypertension; E78.5 Hyperlipidemia, unspecified; Z12.5 Encounter for screening for malignant neoplasm of prostate; Z00.00 Encounter for general adult medical examination without abnormal findings
CPT/HCPCS: 80053; 80061; 84153; 86803; 87389; 85025

== ENCOUNTER 2023-10-31 16:11 | Outpatient (REF) | payer OTHER, SELFPAY ==
[2023-10-31 18:39] LABS: Hemoglobin A1C 6.6 % (<5.7)
[2023-10-31 19:13] LABS: ALT 25 U/L (16-63); AST 18 U/L (15-37); Albumin 3.9 g/dL (3.4-5.0); Alkaline Phosphatase 63 U/L (46-116); Anion Gap 8.4 mmol/L (3-11); BUN 20 mg/dL (7-18); Bilirubin, Total 1.8 mg/dL (0.2-1.0); CO2 29.6 mmol/L (21.0-32.0); CREATININE 1.1 mg/dL (0.70-1.30); Calcium 9.4 mg/dL (8.5-10.1); Calculated LDL 18 mg/dL (<100); Chloride 103 mmol/L (98-107); Cholesterol 81 mg/dL (<200); Estimated GFR 74.04 (mL/min/1.73m2); Glucose 195 mg/dL (74-106); HDL Cholesterol 45 mg/dL (40-60); Potassium 3.7 mmol/L (3.5-5.1); Sodium 141 mmol/L (136-145); Total Protein 6.9 g/dL (6.4-8.2); Triglyceride 94 mg/dL (<150)
== END 2023-10-31 16:12 | disposition home or self-care (01) ==
LOC: NCHCN 16:11
PROVIDERS: PCP Nurse Practitioner; Visit Provider Nurse Practitioner Family
DX: E78.5 Hyperlipidemia, unspecified (principal); E11.9 Type 2 diabetes mellitus without complications
CPT/HCPCS: 80053; 80061; 83036

== ENCOUNTER 2024-06-18 16:43 | Emergency (ER) | payer OTHER, SELFPAY ==
[2024-06-18] VITALS (63 sets, daily range): BP systolic 161–199; BP diastolic 56–129; PULSE 48–85; RESP 9–23; TEMP 37.2; O2SAT 94–98
--- NOTE | 2024-06-18 16:53 | W.ED.GENAD ---
Discharge Plan Disposition Patient Disposition: Home Condition: Stable Discharge Details Clinical Impression: Anaphylaxis Primary Care Provider: Unknown,Unknown ED Provider: Kemar Torres Home Meds and New Rx's Prescriptions: New epinephrine [EpiPen] 0.3 mg/0.3 mL auto-injector 0.3 mg IM Q5-15M PRN (Reason: anaphylaxis) Qty: 2 0RF Rx Instructions: do not exceed 3 doses per episode Continued ANIMAL CHEWS 1 EACH tablet,chewable 1 ea PO DAILY aspirin [Aspir-Low] 81 MG tablet,delayed release (DR/EC) 81 mg PO DAILY metoprolol tartrate 25 MG tablet 25 mg PO BID cetirizine [Zyrtec] 10 MG tablet 10 mg PO DAILY epinephrine 0.3 MG/SYR auto-injector 0.3 mg IM Q10M PRN chlorthalidone 25 mg Tablet 12.5 mg PO DAILY losartan 25 mg Tablet 25 mg PO HS losartan 50 mg Tablet 50 mg PO DAILY vardenafil [Levitra] 20 mg Tablet 20 mg PO DAILY PRN Discharge Instructions Instructions: Anaphylaxis, How to use an epinephrine autoinjector Additional Instructions: You were seen in the emergency department for your anaphylactic reaction to insect stings. He used your EpiPen and we observed you for 4 hours after administration for epinephrine and there was no recurrence of your allergic reaction. We provided you with IV steroids as well as IV Benadryl and IV famotidine which is a histamine 2 birgit. You should continue taking your at home dose of loratadine or Alavert at home for the next couple days, stay well-hydrated. I have sent a new prescription for an EpiPen to [facility] in [place]. Please return for any severe acute worsening of your reaction throughout the evening this evening or any other emergent concerns. HPI General Date/Time Provider Initiated Documentation: 06/18/24 16:52. HPI Narrative: 69 year-old male presents to ED today by POV/ambulating with a chief complaint of insect sting- was mowing his lawn, and ran over a nest of bees or wasps- has anaphylaxis to these. States multiple stings, took his own ~7 year old EpiPen on scene, and had 1 tablet of 10mg loratidine, with onset just prior to arrival. Quality described as chest discomfort when breathing and some R sided facial and lower lip swelling at onset, improved now on arrival, hives in groin area, no radiation to active wheezing, severe allergic facial swelling, respiratory distress, swollen tongue. Severity is described as severe, but feels a past exposure had been much more severe breathing-mayer. Palliating factors include EpiPen on scene, 1 PO 10mg loratidine on scene with some relief. Provoking factors include nothing specific- bee sting. Patient not anticoagulated. Related Data Home Medications ?Medication ?Instructions ?Recorded ?Confirmed aspirin 81 mg tablet,delayed 81 mg PO DAILY 06/20/13 06/18/24 release (Aspir-Low) pediatric multivitamin (ANIMAL 1 ea PO DAILY 06/20/13 06/18/24 CHEWS tablet) cetirizine 10 mg tablet (Zyrtec) 10 mg PO DAILY 08/26/14 06/18/24 epinephrine 0.3 mg/0.3 mL 0.3 mg IM Q10M PRN 08/26/14 06/18/24 injection, auto-injector metoprolol tartrate 25 mg tablet 25 mg PO BID 08/26/14 06/18/24 chlorthalidone 25 mg tablet 12.5 mg PO DAILY 03/17/19 06/18/24 losartan 25 mg tablet 25 mg PO HS 03/17/19 06/18/24 losartan 50 mg tablet 50 mg PO DAILY 03/17/19 06/18/24 vardenafil 20 mg tablet (Levitra) 20 mg PO DAILY PRN 03/17/19 06/18/24 epinephrine 0.3 mg/0.3 mL 0.3 mg (0.3 mL) IM Q5-15M PRN 06/18/24 injection, auto-injector (EpiPen) anaphylaxis #2 ea Previous Rx's ?Medication ?Instructions ?Recorded epinephrine 0.3 mg/0.3 mL 0.3 mg (0.3 mL) IM Q5-15M PRN 06/18/24 injection, auto-injector (EpiPen) anaphylaxis #2 ea Allergies Allergy/AdvReac Type Severity Reaction Status Date / Time venom-wasp (Wasp Venom) Allergy Severe Anaphylaxis Unverified 06/18/24 16:51 apples Allergy Severe Anaphylaxis Uncoded 06/18/24 16:51 bananas Allergy Severe Anaphylaxis Uncoded 06/18/24 16:51 coconuts Allergy Severe Anaphylaxis Uncoded 06/18/24 16:51 grapefruit Allergy Severe Anaphylaxis Uncoded 06/18/24 16:51 strawberries Allergy Severe Anaphylaxis Uncoded 06/18/24 16:51 grapes Allergy Intermediate Anaphylaxis Uncoded 06/18/24 16:51 oranges Allergy Unknown Anaphylaxis Uncoded 06/18/24 16:51 nuts Allergy Anaphylaxis Uncoded 06/18/24 16:51 General Stated Complaint: Allergic YANY: 2 Review of Systems All systems reviewed & are unremarkable except as noted in HPI and below Exam Narrative Exam Narrative: GENERAL APPEARANCE: Well-nourished, non-toxic, awake and alert, atraumatic, no acute distress. SKIN: Warm, pink, dry, intact, diffuse mild urticaria HEAD: Normocephalic, atraumatic, normal hair distribution for gender/age. EYES: Normal conjunctiva, no exudates on lids/lashes. ENT: Nares patent, no circumoral cyanosis, mild right sided allergic conjunctivitis, mild lower lip swelling, no tongue swelling, Mallampati 2 on arrival NECK: Supple, trachea midline, painless cervical ROM. LUNGS/CHEST: Lungs CTA bilaterally-no overt wheezing diffusely, non-labored respirations, normal A/P diameter, symmetrical expansion, no chest wall deformity HEART (CV/PV): Regular rate and rhythm without murmur, no peripheral edema, no JVD. ABDOMEN: Soft, non-distended, no guarding, no tenderness. MSK: Normal ROM, no swelling/deformity to bilateral UEs or LEs, moving all extremities without weakness, no cyanosis, spine midline without tenderness, normal curvature. NEURO: Mental Status AAOx4 - alert to person, place, time, events No facial droop, no forehead involvement. Motor: No focal weakness - strength 5/5 in bilateral UEs and LEs, proximal and distal, symmetric. Sensory: sensation intact to light touch globally. Gait normal: patient ambulated without ataxia into ED room. PSYCH: euthymic, cooperative, pleasant, appropriate speech Course Vital Signs Vital signs: Vital Signs Temperature 37.2 C 06/18/24 16:46 Pulse 82 06/18/24 16:46 Respiratory Rate 18 06/18/24 16:46 Pulse Oximetry 94 06/18/24 16:46 Temperature 37.2 C 06/18/24 16:46 Pulse 82 06/18/24 16:46 Respiratory Rate 18 06/18/24 16:46 Respiratory Effort Short of Breath 06/18/24 16:53 Respiratory Pattern Normal 06/18/24 16:53 Pulse Oximetry 94 06/18/24 16:46 Pain Level 7 06/18/24 16:46 Medical Decision Making This dictation utilizes [id number] dictation software and may contain unedited grammatical errors. 69 year-old male presents to ED today by POV/ambulating with a chief complaint of insect sting- was mowing his lawn, and ran over a nest of bees or wasps- has anaphylaxis to these. States multiple stings, took his own ~7 year old EpiPen on scene, and had 1 tablet of 10mg loratidine, with onset just prior to arrival. Quality described as chest discomfort when breathing and some R sided facial and lower lip swelling at onset, improved now on arrival, hives in groin area, no radiation to active wheezing, severe allergic facial swelling, respiratory distress, swollen tongue. Severity is described as severe, but feels a past exposure had been much more severe breathing-mayer. Palliating factors include EpiPen on scene, 1 PO 10mg loratidine on scene with some relief. Provoking factors include nothing specific- bee sting. 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 Family and social history: noncontributory. Pertinent exam findings / vital signs include R sided allergic conjunctivitis, mild lower lip swelling, no wheezing to auscultation, mild urtcaria to R arm, groin/thighs. Differential / pathologies of concern include anaphylaxis. Diagnostic studies of: -none. Interventions of: -1L IVF NS, 50mg IV Benadryl, 20mg IV famotidine, 125mg IV solu-medrol, 0.3mg SubQ epinephrine PRN. ED Course/Assessment/Plan: 69-year-old male was mowing his lawn and ran over some sort of stinging insect nest and was stung multiple times on his arms and legs as well as right side of his face, presents with significant facial swelling, lip swelling, no tongue swelling and diffuse urticaria, no wheezing to auscultation, he is likely having an anaphylactic reaction, he took an EpiPen on scene around 1615. He also took a 10 mg loratadine, we intervened with further IV antihistamines and steroids, observed him for 4 hours after his first epinephrine injection without return of symptoms or biphasic reaction. I stressed that he should stay hydrated tonight and discharged him home with a disposition of anaphylaxis. I did send him a new prescription for EpiPen. Findings not consistent with biphasic reaction, need for intubation. Disposition of Anaphylaxis. Patient verbalized understanding of the plan and return to ED criteria and engaged in shared decision making. Medical Records Medical records reviewed: Yes I reviewed the patient's medical records. Quality:[facility] Health Related Social Needs: No Data to Display [facility] All Active Problems (Updated 06/18/24 @ 19:53 by WOODROW Stern) Anaphylaxis (Acute) Social History Smoking/Tobacco Use Status: Never Smoking risk assessment performed?: Yes Alcohol Intake: current Alcohol Intake frequency: a few times a month Alcohol type: beer Drug use: Never Do you feel safe at home: Yes Do you feel safe in your relationship?: Yes
[2024-06-18] MEDS: Famotidine 20 MG/2 ML VIAL IVP (17:04)
[2024-06-18] MEDS: Normal Saline 1,000 ML 1000 ML IV (17:05)
[2024-06-18] MEDS: methylPREDNISolone SUCC 125 MG VIAL IVP (17:05)
[2024-06-18] MEDS: diphenhydrAMINE 50 MG/ML VIAL IVP (17:05)
[2024-06-18] MEDS: Normal Saline 50 ML (17:10)
[2024-06-18] MEDS: Albuterol 2.5 MG/3 ML INH SOLN VIAL UPD (17:19)
--- OUTSIDE RECORDS SUMMARY | 2024-06-18 19:00 | XMS_ITS | Clinical Summary ---
[place] [address] Care Team Providers Care Dental Hygiene Instructor Name Role Phone Leno Mcnulty DO Primary Care Provide r Social History Tobacco Use Types Packs/Day Years Used Date Smoking Tobacco: Never Assessed Sex and Gender Information Value Date Recorded Sex Assigned at Not on file Gender Identity Not on file Sexual Orientation Not on file Plan of Treatment Health Maintenance Due Date Last Done Comments CT Colonography 1957 Colonoscopy 1957 Colorectal Cancer Screening 1957 FIT DNA 1957 FIT 1957 Sigmoidoscopy (10 year) with FIT yearly 1957 Sigmoidoscopy 1957 Hepatitis C Screening 1975 Lipid Screening 1975 Tdap adult 1976 Tetanus vaccine 1976 Zoster vaccine (1 of 2) 2007 Advance Directive 2012 Pneumoccocal Vaccine: 65+ (1 of 1 - PCV) 2022 Covid-19 Vaccine (1 - 2022-24 season) 2023 Influenza (Flu) vaccine (1 o f 1 - Influenza standard series) 07/12/2024 Care Teams Dental Hygiene Instructor Relationship Specialty Start Date End Date Leno Mcnulty DO [address] [facility] [place] [address] PCP - General General Surgery 05/12/18
--- OUTSIDE RECORDS SUMMARY | 2024-06-18 19:00 | XMS_ITS | Clinical Summary ---
Author Organization [facility] Address [address] [place] [address] Care Team Providers Care Claim Approver Name Role Phone Unknown, Provider Primary Care Provider Social History Tobacco Use Types Packs/Day Years Used Date Smoking Tobacco: Never Assessed Sex and Gender Information Value Date Recorded Sex Assigned at Not on file Gender Identity Not on file Sexual Orientation Not on file Plan of Treatment Health Maintenance Due Date Last Done Comments RSV Immunization ( o r 60+ Years) (1 - 1-dose 60+ series) 2017 Fall Risk Screening 2022 COVID-19 Vaccine ( season) 2023 Hepatitis C Screen Completed 10/25/2022 Procedures Procedure Name Priority Date/Time Associated Diagnosis Comments HEPATITIS C AB W REFLEX TO HCV RNA BY PCR Today 10/25/2022 15:30 EST from Last 3 Months or Most Recently Relevant to Health Maintenance Results * HEPATITIS C AB W REFLEX TO HCV RNA BY PCR (10/25/2022 15:30 EST) Hep C Antibody Negative Negative 10/29/2022 10:13 EST [facility] Blood VENOUS BLOOD / Unknown 10/25/2022 15:30 EST 10/26/2022 19:57 EST Provider Outr Resulting Lab CHEMISTRY & BLOOD GAS ORDERABLES [facility] [address] [place] [address] from Last 3 Months or Most Recently Relevant to Health Maintenance Care Teams Claim Approver Relationship Specialty Start Date End Date Unknown, Provider, PCP - General 08/14/16
--- OUTSIDE RECORDS SUMMARY | 2024-06-18 19:00 | XMS_ITS | Referral Summary ---
Author Organization [facility] Address [address] [place] [address] Care Team Providers Care Diesel Engine I Pipe Fitter Name Role Phone Unknown, Provider Primary Care Provider [phone] Social History Tobacco Use Types Packs/Day Years Used Date Smoking Tobacco: Never Assessed Sex and Gender Information Value Date Recorded Sex Assigned at Not on file Gender Identity Not on file Sexual Orientation Not on file Plan of Treatment Not on file Procedures Procedure Name Priority Date/Time Associated Diagnosis Comments HEPATITIS C AB W REFLEX TO HCV RNA BY PCR Today 10/25/2022 15:30 EST from Last 3 Months or Most Recently Relevant to Health Maintenance Results * HEPATITIS C AB W REFLEX TO HCV RNA BY PCR (10/25/2022 15:30 EST) Hep C Antibody Negative Negative 10/29/2022 10:13 EST [facility] Blood VENOUS BLOOD / Unknown 10/25/2022 15:30 EST 10/26/2022 19:57 EST Provider Outr Resulting Lab CHEMISTRY & BLOOD GAS ORDERABLES [facility] [address] [place] [address] from Last 3 Months or Most Recently Relevant to Health Maintenance Care Teams Diesel Engine I Pipe Fitter Relationship Specialty Start Date End Date Unknown, Provider, PCP - General 08/14/16
--- OUTSIDE RECORDS SUMMARY | 2024-06-18 19:00 | XMS_ITS | Encounter Summary ---
Author Organization [facility] Address [address] [place] [address] Care Team Providers Care Kennel Worker Name Role Phone Unknown, Provider Primary Care Provider Encounter Details Date Type Department Care Team (Late st Contact Info) Description 09/02/2020 Lab Requisition [facility] Pathology & Laboratory Medicine - [facility] [address] [place], [place] [address] Outr Resulting Lab, Provider Social History Tobacco Use Types Packs/Day Years Used Date Smoking Tobacco: Never Assessed Sex and Gender Information Value Date Recorded Sex Assigned at Not on file Gender Identity Not on file Sexual Orientation Not on file documented as of this encounter Plan of Treatment Not on file documented as of this encounter Procedures Procedure Name Priority Date/Time Associated Diagnosis Comments PSA TOTAL, DIAGNOSTIC Routine 09/01/2020 12:15 EDT documented in this encounter Results * PSA TOTAL, DIAGNOSTIC (09/01/2020 12:15 EDT) PSA 1.8 0.0 - 4.5 ng/mL 09/02/2020 21:44 EDT [facility] Blood VENOUS BLOOD / Unknown 09/01/2020 12:15 EDT 09/02/2020 20:29 EDT Narrative [facility] - 09/02/2020 21:44 EDT NOTE: Serum PSA concentration should not be interpreted as absolute evidence for the presence or absence of malignant disease. Assayed on Siemens [employer] XPT using chemiluminescent technology.??Values obtained by using different assay methods cannot be used interchangeably. Provider Outr Resulting Lab CHEMISTRY & BLOOD GAS ORDERABLES [facility] [address] [place] [address] documented in this encounter Visit Diagnoses Not on filedocumented in this encounter Care Teams Kennel Worker Relationship Specialty Start Date End Date Unknown, Provider, PCP - General 08/14/16 documented as of this encounter
--- OUTSIDE RECORDS SUMMARY | 2024-06-18 19:00 | XMS_ITS | Encounter Summary ---
Author Organization [facility] Address [address] [place] [address] Care Team Providers Care Setter Molding And Coremaking Machines Name Role Phone Unknown, Provider Primary Care Provider Encounter Details Date Type Department Care Team (Late st Contact Info) Description 10/26/2022 Lab Requisition [facility] Pathology & Laboratory Medicine - [address] [address] Outr Resulting Lab, Provider Social History Tobacco [...] Procedure Name Priority Date/Time Associated Diagnosis Comments HOLD SST Today 10/25/2022 15:30 EST HEPATITIS C AB W REFLEX TO HCV RNA BY PCR Today 10/25/2022 15:30 EST PSA TOTAL, DIAGNOSTIC Today 10/25/2022 15:30 EST documented in this encounter Results * HOLD SST (10/25/2022 15:30 EST) Hold Hold 10/26/2022 21:01 EST [facility] Blood VENOUS BLOOD / Unknown 10/25/2022 15:30 EST 10/26/2022 19:57 EST Provider Outr Resulting Lab LAB INFO SER VICE AND SUPPORT & PHONE RESULT [facility] [address] [place] [address] * PSA TOTAL, DIAGNOSTIC (10/25/2022 15:30 EST) PSA 1.6 <=4.5 ng/mL 10/26/2022 21:31 EST [facility] Blood VENOUS BLOOD / Unknown 10/25/2022 15:30 EST 10/26/2022 19:57 EST Narrative [facility] - 10/26/2022 21:31 EST NOTE: Serum PSA concentration should not be interpreted as absolute evidence for the presence or absence of malignant disease. Assayed on [employer] XPT using chemiluminescent technology.??Values obtained by using different assay methods cannot be used interchangeably. Provider Outr Resulting Lab CHEMISTRY & BLOOD GAS ORDERABLES Performing Organization Address City/[facility]/ZIP Co de Phone Number [facility] [address] [place] [address] * HEPATITIS C AB W REFLEX TO HCV RNA BY PCR (10/25/2022 15:30 EST) Pathologist [facility] Hep C Antibody Negative Negative 10/29/2022 10:13 EST [facility] Blood VENOUS BLOOD / Unknown 10/25/2022 15:30 EST 10/26/2022 19:57 EST Provider Outr Resulting Lab CHEMISTRY & BLOOD GAS ORDERABLES Performing Organization Address City/[facility]/ZIP Co de Phone Number [facility] [address] [place] [address] documented in this encounter Visit Diagnoses Not on filedocumented in this encounter Care Teams Setter Molding And Coremaking Machines Relationship Specialty Start Date End Date Unknown, Provider, PCP - General 08/14/16 documented as of this encounter
--- OUTSIDE RECORDS SUMMARY | 2024-06-18 19:00 | XMS_ITS | Encounter Summary ---
Author Organization [facility] Address [address] [place] [address] Care Team Providers Care Well Puller Name Role Phone Unknown, Provider Primary Care Provider [phone] Encounter Details Date Type Department Care Team (Late st Contact Info) Description 10/26/2022 Lab Requisition [facility] Pathology & Laboratory Medicine - [address] [address] Outr Resulting Lab, Provider Social History Tobacco [...] Procedure Name Priority Date/Time Associated Diagnosis Comments HIV 1/2 ANTIGEN AND ANTIBODY, 4TH GENERATION Routine 10/25/2022 15:30 EST documented in this encounter Results * HIV 1/2 ANTIGEN AND ANTIBODY, 4TH GENERATION (10/25/2022 15:30 EST) HIV 1 and 2 Antibody/p24 Antigen, 4th Generation Negative Negative 10/27/2022 13:32 EST [facility] Comment:If acute HIV-1 infec tion is suspected in a high risk patient, submit plasma specimen for HIV-1 RNA quantitation test. Blood VENOUS BLOOD / Unknown 10/25/2022 15:30 EST 10/26/2022 20:10 EST Narrative [facility] - 10/27/2022 13:32 EST Fourth Generation assay performed on the Siemens [employer] XPT. Provider Outr Resulting Lab IMMUNOLOGY A ND SEROLOGY ORDERABLES [facility] [address] [place] [address] documented in this encounter Visit Diagnoses Not on filedocumented in this encounter Care Teams Well Puller Relationship Specialty Start Date End Date Unknown, Provider, PCP - General 08/14/16 documented as of this encounter
--- OUTSIDE RECORDS SUMMARY | 2024-06-18 19:00 | XMS_ITS | Encounter Summary ---
Author Organization [facility] [place] [address] Care Team Providers Care District Engineer Name Role Phone Leno Mcnulty DO Primary Care Provide r Encounter Details Date Type Department Care Team (Latest Contact Info) Description 05/12/2018 9:15 PM EDT - 05/12/2018 11:59 PM EDT [place] [address] Discharge Disposition: Home Social History Tobacco Use Types Packs/Day Years Used Date Smoking Tobacco: Never Assessed Sex and Gender Information Value Date Recorded Sex Assigned at Not on file Gender Identity Not on file Sexual Orientation Not on file documented as of this encounter Plan of Treatment Not on file documented as of this encounter Procedures Procedure Name Priority Date/Time Associated Diagnosis Comments SURGICAL PATHOLOGY REPORT Routine 05/12/2018 12:20 PM EDT documented in this encounter Results * Surgical Pathology Report (05/12/2018 12:20 PM EDT) Final Diagnosis [id number] ? Location: [facility] The signing pathologist has (i) examined the relevant preparation(s) for the specimen(s) and (ii) rendered or confirmed the diagnosis(es). . ?Surgical Pathology DIAGNOSIS A - Cecum, ??polypectomy: Tubular adenoma. B - Ascending colon, ?? polypectomy: Sessile serrated adenoma/polyp. C - Sigmoid colon, ??polypectomy: Tubular adenoma. [id number] Electronically signed by: ??Adwoa Mosher MD Verified: ??05/15/2018 ?Pathologist Performed at: ??-[facility] Dept. of Pathology, [place], [place] CLINICAL INFORMATION Specimen Submitted: A - Cecal polyp bx B - Ascending colon polyp C - Sigmoid polyp bx Clinical History and Diagnosis: Screening for colon CA Referring Identifier: ?(not provided) Report to: Gayle Thurston SPECIMEN PROCESSING A - Labeled/Fixativ e: Cecal polyp BX, formalin. Quantity/Size: Two, 0.2 cm. Tissue Description: Polypoid mattson soft tissues. Sections/Proces sing: (T1) B - Labeled/Fixativ e: Ascending colon polyp, formalin. Quantity/Size: Single, 0.2 x 0.1 x 0.1 cm. Tissue Description: Polypoid mattson soft tissue. Sections/Proces sing: (T1) C - Labeled/Fixativ e: Sigmoid polyp BX, formalin. Quantity/Size: Two, averaging 0.3 cm. Tissue Description: Polypoid mattson soft tissues. Sections/Proces sing: (T1) ??shb 05/15/2018 2:16 PM EDT [facility] GI Biopsy 05/12/2018 12:2 0 PM EDT 05/12/2018 12:20 PM EDT GI Biopsy 05/12/2018 12:2 0 PM EDT 05/12/2018 12:20 PM EDT GI Biopsy 05/12/2018 12:2 0 PM EDT 05/12/2018 12:20 PM EDT Leno Mcnulty DO PATHOLOGY/CYT OLOGY ORDERABLES [facility] [place] [address] documented in this encounter Visit Diagnoses Not on filedocumented in this encounter Care Teams District Engineer Relationship Specialty Start Date End Date Leno Mcnulty DO [address] [place] [address] PCP - General General Surgery 05/12/18 documented as of this encounter
== END 2024-06-18 20:08 | disposition home or self-care (01) ==
PROVIDERS: Emergency Provider Physician Assistant
DX: T63.441A Toxic effect of venom of bees, accidental (unintentional), initial encounter (principal); T78.2XXA Anaphylactic shock, unspecified, initial encounter; R05.9 Cough, unspecified; R06.02 Shortness of breath; L50.9 Urticaria, unspecified; Z79.84 Long term (current) use of oral hypoglycemic drugs; Y92.017 Garden or yard in single-family (private) house as the place of occurrence of the external cause
CPT/HCPCS: 94640; 96374; 96375; 99284; J1200; J2919; J7613

== ENCOUNTER 2025-01-20 22:42 | Outpatient (REF) | payer OTHER, SELFPAY ==
[2025-01-20 20:59] LABS: ALT 30 U/L (16-63); AST 16 U/L (15-37); Albumin 4.1 g/dL (3.4-5.0); Alkaline Phosphatase 61 U/L (46-116); Anion Gap 8.3 mmol/L (3-11); BUN 14 mg/dL (7-18); Bilirubin, Total 1.5 mg/dL (0.2-1.0); CO2 29.7 mmol/L (21.0-32.0); Chloride 106 mmol/L (98-107); Estimated GFR 82.49 (mL/min/1.73m2); Glucose 127 mg/dL (74-106); Potassium 3.3 mmol/L (3.5-5.1); Sodium 144 mmol/L (136-145); Total Protein 6.7 g/dL (6.4-8.2)
== END 2025-01-20 22:43 | disposition home or self-care (01) ==
LOC: NCHCN 22:42
PROVIDERS: Visit Provider Nurse Practitioner Family
DX: E11.9 Type 2 diabetes mellitus without complications (principal)
CPT/HCPCS: 80053

== ENCOUNTER 2025-09-06 12:05 | Outpatient (REF) | payer OTHER, SELFPAY ==
[2025-09-06 21:41] LABS: Hemoglobin A1C 7.3 % (<5.7)
[2025-09-06 21:49] LABS: ALT 53 U/L (16-63); AST 27 U/L (15-37); Albumin 3.5 g/dL (3.4-5.0); Alkaline Phosphatase 58 U/L (46-116); Anion Gap 10.6 mmol/L (3-11); BUN 14 mg/dL (7-18); Bilirubin, Total 1.6 mg/dL (0.2-1.0); CO2 26.4 mmol/L (21.0-32.0); Calcium 8.9 mg/dL (8.5-10.1); Calculated LDL 15 mg/dL (<100); Chloride 103 mmol/L (98-107); Cholesterol 76 mg/dL (<200); Estimated GFR 96.40 (mL/min/1.73m2); Glucose 179 mg/dL (74-106); HDL Cholesterol 37 mg/dL (>or=40); Magnesium 1.6 mg/dL (1.8-2.4); Potassium 3.9 mmol/L (3.5-5.1); Sodium 140 mmol/L (136-145); Total Protein 6.5 g/dL (6.4-8.2); Triglyceride 124 mg/dL (<150)
[2025-09-07 17:58] LABS: PSA, Screening 2.1 ng/mL (<=4.5)
== END 2025-09-06 12:06 | disposition home or self-care (01) ==
LOC: NCHCN 12:05
PROVIDERS: Visit Provider Nurse Practitioner Family
DX: Z12.5 Encounter for screening for malignant neoplasm of prostate (principal); Z00.00 Encounter for general adult medical examination without abnormal findings
CPT/HCPCS: 80053; 80061; 84153; 83036; 83735

== ENCOUNTER 2025-10-13 07:54 | Emergency (ER) | payer OTHER, SELFPAY ==
[2025-10-13 07:56] VITALS: BP 231/89; PULSE 52; RESP 16; TEMP 36.6; O2SAT 99
--- NOTE | 2025-10-13 08:00 | RT.EKG_ITS ---
APPROVED REPORT Exam: Resting ECG Reason for Exam: chest pain Patient Location: E HR:48 bpm ECG Measurements Heart Rate 48 AXIS AZ [id number] P [id number] QRSd 100 QRS -31 QT 494 T -43 QTc 441 Conclusion Junctional rhythm...absent P waves, slow V-rate Left axis deviation...QRS axis (-30,-90) Abnormal T, consider ischemia, diffuse leads...T <-0.20mV, ant/lat/inf No STEMI
--- NOTE | 2025-10-13 08:22 | W.ED.GENAD ---
Discharge Plan Disposition Patient Disposition: Home Discharge Details Clinical Impression: Chest pain, Hypertension Primary Care Provider: Unknown,Unknown ED Provider: Sebastian Julien Home Meds and New Rx's Prescriptions: New acetaminophen [Tylenol] 325 mg tablet 975 mg PO ONCE PRNQty: 60 0RF oxycodone 5 mg capsule 5 mg PO QID PRNQty: 10 0RF No Action aspirin [Aspir-Low] 81 MG tablet,delayed release (DR/EC) 81 mg PO DAILY metoprolol tartrate 25 MG tablet 25 mg PO BID cetirizine [Zyrtec] 10 MG tablet 10 mg PO DAILY epinephrine 0.3 MG/SYR auto-injector 0.3 mg IM Q10M PRN chlorthalidone 25 mg Tablet 12.5 mg PO DAILY losartan 25 mg Tablet 25 mg PO HS losartan 50 mg Tablet 50 mg PO DAILY vardenafil [Levitra] 20 mg Tablet 20 mg PO DAILY PRN epinephrine [EpiPen] 0.3 mg/0.3 mL auto-injector 0.3 mg IM Q5-15M PRN (Reason: anaphylaxis) Qty: 2 0RF Rx Instructions: do not exceed 3 doses per episode Discharge Instructions Instructions: Chest Pain (DC) Additional Instructions: Please follow-up with your primary care provider regarding your visit to the emergency department today. Be sure to discuss results of all test performed here today to include radiology, and laboratory testing as well as results for any pending cultures. Should your symptoms worsen, or if you develop new concerning symptoms, please return immediately emergency department for further evaluation. You Stand Alone Forms: Portal Information HPI General Date/Time Provider Initiated Documentation: 10/13/25 08:03. HPI Narrative: MDM/Narrative: 70-year-old male past medical history hypertension, presents for evaluation of reassessment of known left-sided rib fracture. Vital signs notable for hypertension, exam notable for ecchymosis, abrasion and point tenderness over the left lower ribs with fixed ecchymosis extending down to the abdomen however abdomen is completely soft and nontender. Given patient's advanced age, and recent plane flight back from [facility], will obtain chest x-ray to rule out pneumothorax/pneumonia, and provide pain control. Patient states he is compliant with his antihypertensives suspect there is a degree of hypertension due to [id number] pain, however patient does have an established PCP and is in agreement and he will follow-up, however will obtain EKG to assess for any signs of ACS. ED course: Chest x-ray shows no acute pathology. EKG with nonspecific changes clinically patient is not suffering from ACS instructed to follow-up primary care regarding his blood pressure. Disposition: Home HPI: 70-year-old male with a past medical history of hypertension, presents for evaluation of follow-up imaging of a known left-sided rib fracture. Patient states that approximately 8 days ago while he was visiting his back to stand he tripped and fell in his hotel room and struck his left chest wall on a dresser. At that time he was assessed and found to have 1 broken rib, and was given IM antibiotics and pain control. He was instructed to follow-up when he return to [facility] to ensure he had no complications. He notes some pain, none while remaining still however some worsening pain with movement, but denies any associated shortness of breath, fever or any other new or concerning symptoms. ROS: Negative besides as mentioned above Exam: Gen: A&O NAD HEENT: NCAT, EOMI, not icteric. External ears normal. No rhinorrhea. Moist mucous membranes. Neck: Supple, full range of motion, no observable masses, No meningeal sign. Lungs: No Respiratory distress. CV: RRR, no edema. Abdomen: Soft, nondistended, No rebound tenderness. MSK: No joint swelling, no redness. There is point tenderness over the lower anterolateral left ribs, with overlying ecchymosis and a linear abrasion that is well-healed. Skin: No rashes, petechiae, lesions. Normal color per patient. Neuro: Normal Gait, Grossly intact. Psych: Appropriate for situation. Rhythm: NSR Rate: 48 Chapin: Normal axis Intervals: Normal intervals Other findings: No acute ST segment changes to suggest acute ischemia. T wave inversions of II, II, aVF Radiology: This report is currently processing and HAS NOT BEEN OFFICIALLY SIGNED BY THE PHYSICIAN - ESTIMATED TIME OF APPROVAL IS 10/13/2025 09:16. Exam(s) XR CHEST 2V PA LATERAL EXAM: XR CHEST 2V PA LATERAL CLINICAL HISTORY: chest pain hx of rib fx TECHNIQUE: 2D digital imaging was performed of the chest. Two images were obtained. PA and lateral views were obtained. COMPARISON: CR RIGHT RIBS TO INCLUDE CXR from 06/25/2018 CR XR CHEST 2V PA LATERAL from 03/17/2019 FINDINGS: MEDIASTINUM: Normal. HEART: Normal. PULMONARY VASCULATURE: Normal. LUNGS: Clear. PLEURAL SPACE: No pleural effusion or pneumothorax. BONE:Within normal limits for the patient's age. OTHER FINDINGS:Normal. IMPRESSION: No acute pulmonary findings. Related Data Home Medications ?Medication ?Instructions ?Recorded ?Confirmed aspirin 81 mg tablet,delayed 81 mg PO DAILY 06/20/13 10/13/25 release (Aspir-Low) cetirizine 10 mg tablet (Zyrtec) 10 mg PO DAILY 08/26/14 10/13/25 epinephrine 0.3 mg/0.3 mL 0.3 mg IM Q10M PRN 08/26/14 10/13/25 injection, auto-injector metoprolol tartrate 25 mg tablet 25 mg PO BID 08/26/14 10/13/25 chlorthalidone 25 mg tablet 12.5 mg PO DAILY 03/17/19 10/13/25 losartan 25 mg tablet 25 mg PO HS 03/17/19 10/13/25 losartan 50 mg tablet 50 mg PO DAILY 03/17/19 10/13/25 vardenafil 20 mg tablet (Levitra) 20 mg PO DAILY PRN 03/17/19 10/13/25 epinephrine 0.3 mg/0.3 mL 0.3 mg (0.3 mL) IM Q5-15M PRN 06/18/24 10/13/25 injection, auto-injector (EpiPen) anaphylaxis #2 ea acetaminophen 325 mg tablet 975 mg (3 x 325 mg) PO ONCE PRN 10/13/25 (Tylenol) #60 tabs oxycodone 5 mg capsule 5 mg PO QID PRN #10 caps 10/13/25 Previous Rx's ?Medication ?Instructions ?Recorded epinephrine 0.3 mg/0.3 mL 0.3 mg (0.3 mL) IM Q5-15M PRN 06/18/24 injection, auto-injector (EpiPen) anaphylaxis #2 ea acetaminophen 325 mg tablet 975 mg (3 x 325 mg) PO ONCE PRN 10/13/25 (Tylenol) #60 tabs oxycodone 5 mg capsule 5 mg PO QID PRN #10 caps 10/13/25 Allergies Allergy/AdvReac Type Severity Reaction Status Date / Time venom-wasp (Wasp Venom) Allergy Severe Anaphylaxis Unverified 06/18/24 16:51 apples Allergy Severe Anaphylaxis Uncoded 06/18/24 16:51 bananas Allergy Severe Anaphylaxis Uncoded 06/18/24 16:51 coconuts Allergy Severe Anaphylaxis Uncoded 06/18/24 16:51 grapefruit Allergy Severe Anaphylaxis Uncoded 06/18/24 16:51 strawberries Allergy Severe Anaphylaxis Uncoded 06/18/24 16:51 grapes Allergy Intermediate Anaphylaxis Uncoded 06/18/24 16:51 oranges Allergy Unknown Anaphylaxis Uncoded 06/18/24 16:51 nuts Allergy Anaphylaxis Uncoded 06/18/24 16:51 General Stated Complaint: Orthopedic YANY: 4 Course Vital Signs Vital signs: Vital Signs Temperature 36.6 C 10/13/25 07:56 Pulse 52 L 10/13/25 07:56 Respiratory Rate 16 10/13/25 07:56 Blood Pressure 231/89 H 10/13/25 07:56 Pulse Oximetry 99 10/13/25 07:56 Temperature 36.6 C 10/13/25 07:56 Pulse 52 L 10/13/25 07:56 Respiratory Rate 16 10/13/25 07:56 Blood Pressure 231/89 H 10/13/25 07:56 Pulse Oximetry 99 10/13/25 07:56 Pain Level 5 10/13/25 07:56 PFSH All Active Problems (Updated 10/13/25 @ 09:08 by Sebastian Julien MD) Hypertension (Chronic) Chest pain (Acute) Social History Smoking/Tobacco Use Status: Never Smoking risk assessment performed?: Yes Alcohol Intake: current Alcohol Intake frequency: a few times a month Alcohol type: beer Drug use: Never Do you feel safe at home: Yes Do you feel safe in your relationship?: Yes
--- NOTE | 2025-10-13 08:35 | DI.RAD_ITS ---
Exam(s) XR CHEST 2V PA LATERAL EXAM: XR CHEST 2V PA LATERAL CLINICAL HISTORY: chest pain hx of rib fx TECHNIQUE: 2D digital imaging was performed of the chest. Two images were obtained. PA and lateral views were obtained. COMPARISON: CR RIGHT RIBS TO INCLUDE CXR from 06/25/2018 CR XR CHEST 2V PA LATERAL from 03/17/2019 FINDINGS: MEDIASTINUM: Normal. HEART: Normal. PULMONARY VASCULATURE: Normal. LUNGS: Clear. PLEURAL SPACE: No pleural effusion or pneumothorax. BONE:Within normal limits for the patient's age. OTHER FINDINGS:Normal. IMPRESSION: No acute pulmonary findings. DATA REPOSITORY: RADIATION DOSE DELIVERED:
[2025-10-13] MEDS: Acetaminophen 500 MG TAB 1000 MG PO (09:21)
[2025-10-13] MEDS: Lidocaine 5% Patch 1 PATCH TP (09:21)
[2025-10-13 09:31] VITALS: BP 182/82
== END 2025-10-13 09:29 | disposition home or self-care (01) ==
PROVIDERS: Emergency Provider General Practice
DX: R07.89 Other chest pain (principal); I10 Essential (primary) hypertension; R94.31 Abnormal electrocardiogram [ECG] [EKG]; Z79.82 Long term (current) use of aspirin
CPT/HCPCS: 93005; 99284; 71046; 93010